=== PATIENT | male | born 1985 | race Caucasian/White ===

== ENCOUNTER 2018-04-30 07:16 | Emergency (ER) | payer OTHER ==
[2018-04-30] MEDS ORDERED: Dexamethasone 10 MG/ML VIAL ONE (07:48)
--- NOTE | 2018-04-30 08:05 | RAD ---
PA AND LATERAL CHEST: Date: 04/30/18 HISTORY: Productive cough for 2 weeks. FINDINGS: Cardiac silhouette and pulmonary vasculature are within normal limits. The lungs are clear. Osseous s tructures are intact. IMPRESSION: No acute cardiopulmonary process. POS: [id number]
== END 2018-04-30 08:10 | disposition home or self-care (01) ==
LOC: ERS 07:16
DX: J20.9 Acute bronchitis, unspecified (principal)
CPT/HCPCS: 71046; 94640; 96372; J1100; J7620